=== PATIENT | male | born 1980 | race Caucasian/White ===

== ENCOUNTER → 2018-06-06 16:19 | Outpatient (CLI) | payer OTHER, SELFPAY ==
[2018-06-06 17:33] LABS: Absolute Lymphocyte Count 2.06 X10^3/ul (0.83-4.51); Absolute Neutrophil Count 4.3 X10^3/uL (2.0-7.7); Basophil# 0.03 X10^3/uL; Basophil% 0.4 % (0-1); Eosinophil# 0.11 X10^3/uL; Eosinophils% 1.6 % (0-5); Hematocrit 44.2 % (40-54); Hemoglobin 15.5 g/dl (13.0-16.5); Lymphocyte # 2.06 X10^3/ul (4.0); Lymphocyte % 29.3 % (19-41); Mean Corp Hgb Conc 35.1 g/gl (32-36); Mean Corpuscular Volume 88.4 fL (80-94); Mean Platelet Vol. 11.3 fl (6.2-12.0); Monocyte# 0.49 X10^3/uL; Neutrophil # 4.32 X10^3/uL (2.7-7.7); Neutrophil % 61.3 % (47-70); POSITIVE COUNT NO; POSITIVE DIFFERENTIAL NO; POSITIVE MORPHOLOGY NO; Platelet Count 358 K/mm3 (150-450); RBC Distribution Width CV 12.8 % (11.6-14.6); RBC Distribution Width SD 40.9 fl (35.1-43.9)
[2018-06-06 18:01] LABS: AST(SGOT) 27 U/L (15-37); Alanine Aminotransfer ALT/SGPT 59 U/L (16-61); Albumin, Serum 4.6 g/dL (3.2-5.0); Alkaline Phosphatase 88 U/L (45-117); Amylase 51 U/L (25-115); Bilirubin, Direct 0.19 mg/dL (0.00-0.30); Globulin 3.3 g/dL (2.2-4.2); Lipase 86 U/L (73-393); Protein, Total 7.9 g/dL (6.4-8.2)
== END ==
PROVIDERS: Family Provider Family Medicine; PCP Family Medicine; Referring Provider Family Medicine; Visit Provider Family Medicine
DX: R10.9 Unspecified abdominal pain (principal)
CPT/HCPCS: 36415; 80076; 82150; 83690; 85025

== ENCOUNTER → 2018-06-16 12:31 | Outpatient (CLI) | payer OTHER, SELFPAY | PROVIDERS: Family Provider Family Medicine; PCP Family Medicine; Visit Provider Family Medicine | DX: Z09 Encounter for follow-up examination after completed treatment for conditions other than malignant neoplasm (principal) | CPT/HCPCS: 36415 ==

== ENCOUNTER → 2018-07-12 08:22 | Outpatient (CLI) | payer OTHER, SELFPAY ==
--- NOTE | 2018-07-12 08:50 | US_ITS ---
STUDY: ABDOMINAL ULTRASOUND - RIGHT UPPER QUADRANT REASON FOR VISIT: Male, 37 years old. Right upper quadrant pain TECHNIQUE: Ultrasound evaluation of the right upper quadrant was performed with real-time and static mallory-scale imaging. TECHNICAL QUALITY: Adequate. COMPARISON: None. FINDINGS: Liver: The liver measures 16 cm. There is increased echogenicity of the liver. The bile ducts are within normal limits. There is hepatic color flow. The direction of portal flow is hepatopetal. There is no demonstrated mass lesion. Gallbladder: The patient is status post cholecystectomy. Common Bile Duct (C.B.D.): The common bile duct measures 5 mm. Pancreas: There is normal echogenicity of the pancreas. There is no demonstrated pancreatic mass or cyst. Right Kidney: Normal size of the right kidney. The right kidney measures 11.0 cm. Normal renal cortex. The right cortex measures 1.0 cm. There is no demonstrated renal mass or cyst. There is no right hydronephrosis. US/Abdomen Limited IMPRESSION: Increased echogenicity of the liver most commonly associated with hepatic steatosis. Cholecystectomy. Electronically Signed: Sanju Yuen MD at 16:23 EDT , Service support ,
== END ==
PROVIDERS: Family Provider Family Medicine; PCP Family Medicine; Referring Provider Family Medicine; Visit Provider Family Medicine
DX: R10.11 Right upper quadrant pain (principal)
CPT/HCPCS: 76705

== ENCOUNTER → 2018-10-23 | Outpatient (CLI) | payer OTHER, SELFPAY ==
[2018-10-23 10:34] LABS: ALB/GLOB Ratio 1.3 RATIO (0.9-2.4); AST(SGOT) 13 U/L (15-37); Alanine Aminotransfer ALT/SGPT 39 U/L (16-61); Albumin, Serum 4.1 g/dL (3.2-5.0); Alkaline Phosphatase 77 U/L (45-117); Anion Gap 8 (5-15); BUN 12 mg/dL (7-18); BUN/Creat Ratio 12.1 RATIO (10-20); Calcium,Total 9.3 mg/dL (8.5-10.1); Chloride 106 mmol/L (98-107); Cholesterol 195 mg/dL (200); Creatinine, Serum 0.99 mg/dL (0.70-1.30); EST Glomerular Filtration Rate 90 mL/min (>60); Est Glom Filt Rate - Afr Amer 109 mL/min (>60); Globulin 3.1 g/dL (2.2-4.2); Glucose 119 mg/dL (74-106); High Density Lipoprotein 32 mg/dL; Potassium 4.4 mmol/L (3.5-5.1); Protein, Total 7.2 g/dL (6.4-8.2); Sodium Level 141 mmol/L (136-145); Triglycerides 110 mg/dL; Very Low Density Lipoprotein 22 mg/dL (5-40)
[2018-10-25 20:07] LABS: Testosterone, Free 10.77 ng/dL (5.00-21.00)
[2018-10-26 13:20] LABS: Testosterone, % Free 1.89 % (1.50-4.20); Testosterone, Total 570 ng/dL (264-916)
== END | disposition home or self-care (01) ==
LOC: MFPLAB 08:48
PROVIDERS: Family Provider Family Medicine; PCP Family Medicine; Referring Provider Family Medicine; Visit Provider Family Medicine
DX: E11.9 Type 2 diabetes mellitus without complications (principal); E55.9 Vitamin D deficiency, unspecified; Z51.81 Encounter for therapeutic drug level monitoring
CPT/HCPCS: 36415; 80053; 80061; 82306; 84402; 84403

== ENCOUNTER → 2019-03-02 11:14 | Outpatient (CLI) | payer OTHER, SELFPAY ==
[2019-03-02 13:58] LABS: Absolute Lymphocyte Count 2.09 X10^3/uL (0.83-4.51); Absolute Neutrophil Count 3.8 X10^3/uL (2.0-7.7); Basophil# 0.04 X10^3/uL; Basophil% 0.6 % (0-1); Eosinophil# 0.19 X10^3/uL; Eosinophils% 2.9 % (0-5); Hematocrit 45.7 % (40-54); Hemoglobin 15.5 g/dL (13.0-16.5); Lymphocyte # 2.09 X10^3/ul (4.0); Lymphocyte % 31.5 % (19-41); Mean Corp Hgb Conc 33.9 g/dL (32-36); Mean Corpuscular Hgb 30.5 pg (27.0-32.0); Mean Platelet Vol. 11.5 fl (6.2-12.0); Monocyte# 0.51 X10^3/uL; Monocyte% 7.7 % (0-10); NRBC Flagged by Analyzer 0 % (0-5); Neutrophil # 3.78 X10^3/uL (2.7-7.7); Platelet Count 349 K/mm3 (150-450); RBC Distribution Width CV 12.6 % (11.6-14.6); RBC Distribution Width SD 41.1 fl (35.1-43.9); Red Blood Count 5.08 M/mm3 (4.6-6.2); White Blood Count 6.6 K/mm3 (4.4-11.0)
[2019-03-02 14:20] LABS: Hemoglobin A1c 6.1 % (4.2-6.3)
[2019-03-02 14:26] LABS: ALB/GLOB Ratio 1.2 RATIO (0.9-2.4); AST(SGOT) 17 U/L (15-37); Alanine Aminotransfer ALT/SGPT 45 U/L (16-61); Albumin, Serum 4.2 g/dL (3.2-5.0); Alkaline Phosphatase 73 U/L (45-117); Anion Gap 7 (5-15); BUN 10 mg/dL (7-18); BUN/Creat Ratio 10.5 RATIO (10-20); Calcium,Total 9.3 mg/dL (8.5-10.1); Chloride 106 mmol/L (98-107); Creatinine, Serum 0.95 mg/dL (0.70-1.30); EST Glomerular Filtration Rate 94 mL/min (>60); Est Glom Filt Rate - Afr Amer 114 mL/min (>60); Globulin 3.5 g/dL (2.2-4.2); Glucose 96 mg/dL (74-106); Potassium 3.9 mmol/L (3.5-5.1); Protein, Total 7.7 g/dL (6.4-8.2); Sodium Level 141 mmol/L (136-145)
[2019-03-02 14:52] LABS: Vitamin B12 390 pg/mL (211-911); Vitamin D,25 Hydroxy 50.1 ng/mL (29.95-100.01)
[2019-03-03 14:26] LABS: ANTINUCLEAR ANTIBODIES DIRECT Negative (Negative)
[2019-03-04 12:35] LABS: Testosterone Free 8.8 pg/mL (8.7-25.1)
== END ==
PROVIDERS: Family Provider Family Medicine; PCP Family Medicine; Visit Provider Family Medicine
DX: R63.4 Abnormal weight loss (principal)
CPT/HCPCS: 36415; 80053; 82306; 82607; 82746; 83036; 84402; 84403; 85025; 86038

== ENCOUNTER → 2019-11-11 11:40 | Outpatient (CLI) | payer OTHER, SELFPAY ==
[2019-11-11 15:46] LABS: Vitamin B12 379 pg/mL (211-911)
[2019-11-11 15:54] LABS: ALB/GLOB Ratio 1.1 RATIO (0.9-2.4); AST(SGOT) 14 U/L (15-37); Alanine Aminotransfer ALT/SGPT 43 U/L (16-61); Albumin, Serum 4.1 g/dL (3.2-5.0); Alkaline Phosphatase 81 U/L (45-117); Anion Gap 6 (5-15); BUN 7 mg/dL (7-18); BUN/Creat Ratio 8.1 RATIO (10-20); Chloride 106 mmol/L (98-107); Cholesterol 195 mg/dL (200); Creatinine, Serum 0.87 mg/dL (0.70-1.30); EST Glomerular Filtration Rate 104 mL/min (>60); Est Glom Filt Rate - Afr Amer 126 mL/min (>60); Globulin 3.7 g/dL (2.2-4.2); Glucose 109 mg/dL (74-106); High Density Lipoprotein 36 mg/dL; Potassium 3.9 mmol/L (3.5-5.1); Protein, Total 7.8 g/dL (6.4-8.2); Sodium Level 140 mmol/L (136-145); Triglycerides 116 mg/dL; Very Low Density Lipoprotein 23 mg/dL (5-40)
== END ==
PROVIDERS: PCP Family Medicine; Referring Provider Family Medicine; Visit Provider Family Medicine
DX: E11.9 Type 2 diabetes mellitus without complications (principal); E34.9 Endocrine disorder, unspecified; E53.8 Deficiency of other specified B group vitamins
CPT/HCPCS: 36415; 80053; 80061; 82607; 84403

== ENCOUNTER → 2019-12-31 | Outpatient (CLI) | payer OTHER, SELFPAY | END | disposition home or self-care (01) | PROVIDERS: PCP Family Medicine; Referring Provider Family Medicine; Visit Provider Family Medicine | DX: Z20.828 Contact with and (suspected) exposure to other viral communicable diseases (principal) | CPT/HCPCS: 87635; U0003 ==

== ENCOUNTER 2020-04-25 09:21 | Day surgery (SDC) | payer OTHER, SELFPAY ==
[2020-04-25] VITALS (10 sets, daily range): BP systolic 116–153; BP diastolic 7–105; PULSE 98–120; RESP 16; TEMP 36.3–36.6; O2SAT 92–100; BMI 38.1
--- NOTE | 2020-04-25 | CYST_PTH ---
PATIENT: ALBA NAIDU LOC: [facility] [place] U#:[id number] AGE/SX: 39/M ROOM: RE04/25/[address]: Dr. Ihsan Kaiser MD : 1980 BED: DIS: 04/25/2020 SPEC #: [id number] RECD: 04/25/20 13:16 STATUS: ISELA HANK #: [id number] BINU: 04/25/20 00:[address]: Ihsan Kaiser DEPT: SURGICAL PATHOLOGY RECD BY: Chente Lopez ENTERED: 04/26/20 07:14 SP TYPE: Cyst OTHR DR: Dr. Wallace Moran MD Tissues: CYST Procedures: Surgery Specimen Level III HEADER OPERATION: Excision, benign lesion, subcutaneous back PRE-OP DIAGNOSIS: Infected cyst of skin TISSUE SUBMITTED: Upper left back infected sebaceous cyst MICROSCOPIC DIAGNOSIS Skin lesion, upper left back, excision: Consistent with epidermal inclusion cyst, inflamed. AM:justin 04/27/2020 MICROSCOPIC DESCRIPTION Slides are reviewed. GROSS DESCRIPTION Received in fixative is one container labeled with the patient's name and designated upper left back infected sebaceous cyst. The specimen consists of multiple irregular fragments of soft tissue mixed with galloway-white cheesy material that in aggregate measure 5 x 5 x 2 cm. Overhead Irrigator sections are submitted in two cassettes. / SJ:justin 04/26/20 TC:5 [facility]: [id number]
--- NOTE | 2020-04-25 06:54 | HP_ITS ---
Intake Intake Visit Reasons: SEBACIOUS CYST LEFT SHOULDER [facility] Medical History (Updated 04/22/20 @ 10:[address] Ihsan Kaiser MD) Hidradenitis suppurativa (Acute) HPI HPI Surgical H&P: Yes HPI: ALBA NAIDU, is a 39 M who presents to the office today for Painful back cyst. The patient reports that this flares up if he works out and does not shower. The patient reports there is purulent drainage. It is very tender and painful. It has been lanced in the past. ROS General General: No weight change or fatigue Skin Additional Details: Inflamed purulent draining cyst of the back Cardio Cardiovascular: No murmur, pacemaker, heart disease, atrial fibrillation, high blood pressure, heart attack, heart stent, palpitations, shortness of breat with exertion or chest pain Psych Psychiatric: No depression or anxiety Resp Respiratory: No shortness of breath, No sleep apnea, No cough, No COPD, No asthma, No emphysema, No wheezing Gastro Gastrointestinal: No abdominal pain, No nausea or vomiting, No diarrhea, No constipation, No blood in stool, No acid reflux, No hemorrhoids, No ulcers, No gallbladder problem, No black,tarry stools Misbah Hematologic: No blood thinners Exam Const General: cooperative Orientation: alert, oriented x3 Resp Effort & Inspection: normal respiratory effort Auscultation: clear to auscultation bilaterally Cardio Rate: regular rate Rhythm: regular rhythm Heart Sounds: no murmurs GI Inspection: non-distended Palpation: soft, nontender Skin Other: Inflamed purulent draining cyst of the back Assessment & Plan Problems 1. Infected cyst of skin L72.9; L08.9 Plan The patient has a cyst of his upper back on the left side which is draining some purulent tissue although there is no cellulitis in the area. It is tender to the touch. The patient would like the cyst removed but he would like it done in the operating room as he is unable to tolerate local anesthesia. I discussed the risks of bleeding and infection with him and I will take him to the operating room early next week for excision of this area. Patient is started on antibiotics that were given to him by his PCP. Ihsan Kaiser MD Pager: [facility] [address] [place] [address], [address] [place] [address] Office: Coding Level of Care Code Off vis,new,level 3 Diagnoses Infected cyst of skin L72.9; L08.9 I have re-examined the patient. There are no clinical changes since date of exam.
[2020-04-25] MEDS: Bupiv/Epi 0.5% Mpf 30 ML Vial (11:07)
[2020-04-25] MEDS: Lidocaine 1% (20 ml mdv) 20 ML Vial (11:07)
--- NOTE | 2020-04-25 11:16 | DCINST_ITS ---
Discharge Diet: Light diet - advance as tolerated Discharge Activity: May Not Drive - While on narcotic pain medication, May Shower May shower in (days): 1 Call your doctor if your incision/area has: Continuous Slow Oozing, Sudden Increased Bleeding, Increased Pain/ Swelling, Increased Redness, Foul Smelling Discharge, Swelling at the incision site Call your doctor if you observe: Fever of 101 or Higher Suture Line Care: Avoid Pulling/Pushing, Avoid Pinching/Bending Change Dressing in (Days):: 2 Cleanse incision/area with: Soap & Water Additional Instructions: Finish antibiotic course. Change dressing as needed Allergies/Adverse Reactions: Allergies adhesive tape Allergy (Verified 04/25/20 10:06) Rash Medications to take at Discharge Testosterone Cypionate [Testone Cik] 200 mg IM QWEEK 04/22/20 Oxycodone HCl/Acetaminophen [Percocet 5-325 mg Tablet] 1 tab PO Q6H PRN PRN 3 Days #15 tablet 04/25/20 The following prescriptions were given: Oxycodone HCl/Acetaminophen [Percocet 5-325 mg Tablet] 1 tab PO Q6H PRN PRN 3 Days #15 tablet PRN Reason: Pain Score 4-10/10 Transmission Status: Sent to [facility] Primary Care Physician: Naresh Moran MD [Primary Care Provider] - Test Results: Test results from this visit will be discussed in further detail at your follow- up appointment, if applicable. Please Follow Up With: Ihsan Kaiser MD When: Please call to schedule 1 week follow up appointment. [phone]
--- NOTE | 2020-04-25 11:17 | OP.PCM_ITS ---
Problem List (1) Infected cyst of skin Status: Acute Report of Operation Date of Procedure: 04/25/20 Pre-Operative Diagnosis: Infected sebaceous cyst of the back Post-Operative Diagnosis: Same Surgery/Procedure Performed:: Excision and debridement of infected sebaceous cyst of the back Specimen's removed: Sebaceous material Description of Procedure: Patient was brought back to the operating room and MAC anesthesia was induced. The patient's left upper back was prepped and draped in usual sterile fashion. The sinus to the infected cyst was located an elliptical incision was marked around this and injected with local anesthetic. A scalpel was used to make the incision and the sebaceous cyst cavity was entered. The sebaceous material was expressed from the cyst and was very copious. The cyst cavity measured approximately 4 cm in diameter. Next the cyst wall was excised using electrocautery and then electrocautery was used to maintain hemostasis. The cavity was irrigated and suctioned dry. I quarter inch Winslow drain was placed into the cavity and sutured to the incision using a 3-0 nylon suture. Next the skin incision was closed on either side of the drain using 3-0 nylon sutures. Dressing was applied. Patient was taken to PACU in stable condition. Grafts/Implants Used: 1/4 inch Karolina - Admit VTE Documentation VTE Mechan Device Prophylaxis: SCD's
== END 2020-04-25 12:50 | disposition home or self-care (01) ==
LOC: SDC 09:22 → AC 09:28
PROVIDERS: PCP Family Medicine; Visit Provider Surgery
PROC: (CPT 11404; principal; 2020-04-25 10:50)
DX: L73.2 Hidradenitis suppurativa (principal); Z20.828 Contact with and (suspected) exposure to other viral communicable diseases; K58.9 Irritable bowel syndrome, unspecified; K76.0 Fatty (change of) liver, not elsewhere classified
CPT/HCPCS: 00400; 11404; 87426; 88304; C9803; J7120